=== PATIENT | male | born 1995 | race Caucasian/White ===

== ENCOUNTER 2017-10-01 19:42 | Emergency (ER) | payer BC ==
[2017-10-01] MEDS ORDERED: Famotidine IV* 10 MG/ML 2 ML (20 mg) IV SLOW PU ONE (20:19)
[2017-10-01] MEDS ORDERED: Ondansetron INJ* 2 MG/ML VIAL IV ONE (20:20)
[2017-10-01] MEDS ORDERED: NS 0.9% 1000 ML* 1,000 ML IV ONE (20:25)
--- NOTE | 2017-10-01 20:30 | UC ---
Abdominal Pain Male HPI - HPI Summary HPI Summary: nausea and vomiting all day drank 11 alcoholic beverages last night and has been vomiting all day---patient reports his usual alcohol intake this summer has been 5 times a week--- - History of Current Complaint Chief Complaint: UCGI Stated Complaint: VOMITING,FATIGUE Time Seen by Provider: 10/01/17 20:10 Hx Obtained From: Patient Onset/Duration: Sudden Onset Timing: Constant Pain Intensity: 8 Pain Scale Used: 0-10 Numeric Location: Diffuse Radiates: No Character: Unable to describe Aggravating Factor(s): Nothing Alleviating Factor(s): Nothing Associated Signs And Symptoms: Positive: Nausea, Vomiting - Allergies/Home Medications Allergies/Adverse Reactions: Allergies Allergy/AdvReac Type Severity Reaction Status Date / Time No Known Allergies Allergy Verified 10/01/17 20:06 Home Medications: Home Medications NK [No Home Medications Reported] 10/01/17 [History Confirmed 10/01/17] PMH/Surg Hx/FS Hx/Imm Hx Previously Healthy: Yes - Surgical History Surgical History: None - Family History Known Family History: Positive: None - Social History Occupation: Student Lives: Dormitory/Roommates Alcohol Use: Daily Substance Use Type: Marijuana Substance Use Comment - Amount & Last Used: daily Smoking Status (MU): Light Every Day Tobacco Smoker Amount Used/How Often: occasional jewel use Review of Systems Constitutional: Negative Skin: Negative Eyes: Negative ENT: Negative Respiratory: Negative Cardiovascular: Negative Gastrointestinal: Abdominal Pain, Vomiting, Nausea Genitourinary: Negative Motor: Negative Neurovascular: Negative Musculoskeletal: Negative Neurological: Negative Psychological: Negative Is Patient Immunocompromised?: No All Other Systems Reviewed And Are Negative: Yes Physical Exam Triage Information Reviewed: Yes Appearance: Well-Nourished, Ill-Appearing, Pain Distress Vital Signs: Initial Vital Signs Temp 99.8 F 10/01/17 19:58 Pulse 84 10/01/17 19:58 Resp 18 10/01/17 19:58 BP 135/107 10/01/17 19:58 Pulse Ox 100 10/01/17 19:58 Vital Signs Reviewed: Yes Eye Exam: Normal Eyes: Positive: Conjunctiva Clear ENT Exam: Normal ENT: Positive: Normal ENT inspection, Hearing grossly normal, Pharynx normal. Negative: Trismus, Muffled voice, Hoarse voice Dental Exam: Normal Neck exam: Normal Neck: Positive: Supple, Nontender Respiratory Exam: Normal Respiratory: Positive: Chest non-tender, Lungs clear, Normal breath sounds, No respiratory distress, No accessory muscle use Cardiovascular Exam: Normal Cardiovascular: Positive: RRR, No Murmur, Pulses Normal, Brisk Capillary Refill Abdominal Exam: Other Abdomen Description: Positive: No Organomegaly, Soft. Negative: CVA Tenderness (R), CVA Tenderness (L), Hepatomegaly Bowel Sounds: Positive: Present Musculoskeletal Exam: Normal Musculoskeletal: Positive: Strength Intact, ROM Intact, No Edema Neurological Exam: Normal Neurological: Positive: Alert, Muscle Tone Normal Psychological Exam: Normal Skin Exam: Normal Re-Evaluation - Re-Evaluation First Eval Change: Improved - feeling much better, voiding qs Abd Pain Male Course/Dx - Course Course Of Treatment: alcohol cesasation information and substance abuse information provided for patient--safe drinking information provided - Differential Dx/Clinical Impression Provider Diagnoses: acute alcohol intoxication, gastritis Discharge - Sign-Out/Discharge Documenting (check all that apply): Patient Departure - Discharge Plan Condition: Stable Disposition: HOME Patient Education Materials: Abuse of Alcohol (ED), At-Risk Alcohol Use (ED), Alcohol Use Disorder (ED) Referrals: [facility] [Primary Care Provider] - 3 Days - Billing Disposition and Condition Condition: STABLE Disposition: Home
[2017-10-01 22:09] VITALS: BP 117/75
== END 2017-10-01 22:05 | disposition home or self-care (01) ==
LOC: UCEAST 19:42
DX: F10.129 Alcohol abuse with intoxication, unspecified (principal); K29.20 Alcoholic gastritis without bleeding; F17.200 Nicotine dependence, unspecified, uncomplicated
CPT/HCPCS: 81003; 96361; 96374; 96375; 99202; G0463; J2405